=== PATIENT | female | born 1995 | race Caucasian/White ===

== ENCOUNTER 2016-06-26 21:40 | Emergency (ER) | payer MEDICAID ==
[~2016-06-26] VITALS: Ht 162.6 cm; Wt 80.6 kg
[2016-06-26] MEDS ORDERED: KETOROLAC 60MG/2ML VIAL IM ONE (22:30)
[2016-06-26 22:43] VITALS: BP 122/80
[2016-06-26 22:47] LABS: CLARITY URINE CLEAR (CLEAR); COLOR URINE YELLOW (YELLOW); GLUCOSE URINE NEGATIVE (NEGATIVE); KETONES URINE NEGATIVE (NEGATIVE); LEUKOCYTE ESTERASE URINE NEGATIVE (NEGATIVE); NITRITE URINE NEGATIVE (NEGATIVE); OCCULT BLOOD URINE NEGATIVE (NEGATIVE); PROTEIN URINE NEGATIVE (NEGATIVE); SPECIFIC GRAVITY URINE 1.022 (1.005-1.030)
[2016-06-26 23:16] LABS: BASOPHILS % 0.2 % (0.0-2.0); DIFFERENTIAL COMMENT 0; EOSINOPHILS % 1.9 % (0.0-5.0); HEMATOCRIT. 38.5 % (36.0-48.0); HEMOGLOBIN. 12.7 g/dL (12.0-16.0); LYMPHOCYTES % 28.3 % (20.0-50.0); MEAN CORPUSCULAR HEMOGLOBIN 25.6 pg (28.0-32.0); MEAN CORPUSCULAR VOLUME 77.8 fL (81.0-99.0); MEAN PLATELET VOLUME 8.9 fl (7.4-10.4); MONOCYTES % 10.7 % (2.0-8.0); NEUTROPHILS % 58.9 % (40.0-76.0); PLATELET 245 x1000/uL (130-400); RED BLOOD CELL COUNT 4.94 mill/uL (4.2-5.4); RED CELL DISTRIBUTION WIDTH 14.2 % (11.6-14.6); WHITE BLOOD COUNT 7.7 x1000/uL (4.5-11.0)
[2016-06-26 23:19] LABS: CHLORIDE 107 mEq/L (98-107); INDEX HEMOLYSI 1 (1-3); INDEX ICTERIC 1 (1-4); INDEX LIPEMIC 1 (1-3)
[2016-06-26 23:20] LABS: PROTHROMBIN TIME 10.7 sec
[2016-06-26 23:21] LABS: ALBUMIN 3.6 g/dL (3.4-5.0); ANION GAP 12; CALCIUM 8.7 mg/dL (8.5-10.1); CARBON DIOXIDE 29 mEq/L (21-32)
[2016-06-26 23:22] LABS: LIPASE 109 IU/L (73-393); UREA NITROGEN BLOOD 14 mg/dL (7-21)
[2016-06-26 23:27] LABS: ALANINE AMINOTRANSFERASE 18 IU/L (13-61); eGFR > 60 mL/min (>60)
== END 2016-06-27 00:20 | disposition home or self-care (01) ==
LOC: ER 22:45
DX: R07.89 Other chest pain (principal); R10.9 Unspecified abdominal pain; M94.0 Chondrocostal junction syndrome [Tietze]; F17.200 Nicotine dependence, unspecified, uncomplicated
CPT/HCPCS: 36415; 80053; 81003; 81025; 83690; 85025; 85610; 93005; 96372; 99285; J1885; Z7610

== ENCOUNTER 2016-06-28 22:27 | Emergency (ER) | payer MEDICAID ==
[~2016-06-28] VITALS: Ht 162.6 cm; Wt 79.0 kg
[2016-06-28 23:05] VITALS: BP 130/77
== END 2016-06-29 00:42 | disposition home or self-care (01) ==
LOC: ER 22:28
DX: R07.89 Other chest pain (principal); F41.9 Anxiety disorder, unspecified; R25.1 Tremor, unspecified; R06.02 Shortness of breath; I10 Essential (primary) hypertension
CPT/HCPCS: 93005; 99283

== ENCOUNTER 2018-03-20 14:34 | Emergency (ER) | payer MEDICAID ==
[~2018-03-20] VITALS: Ht 162.6 cm; Wt 88.0 kg
[2018-03-20] MEDS ORDERED: IBUPROFEN 400MG TABLET PO ONE (18:30)
[2018-03-20 19:18] VITALS: BP 124/67
== END 2018-03-20 19:31 | disposition home or self-care (01) ==
LOC: ER 14:34
DX: M94.0 Chondrocostal junction syndrome [Tietze] (principal); F41.9 Anxiety disorder, unspecified
CPT/HCPCS: 93005; 99284

== ENCOUNTER 2019-03-26 08:38 | Emergency (ER) | payer SELFPAY ==
[~2019-03-26] VITALS: Ht 165.1 cm; Wt 100.0 kg
[2019-03-26] MEDS ORDERED: ONDANSETRON HCL 4MG/2ML INJ IV STA (12:53)
[2019-03-26] MEDS ORDERED: MAGNESIUM/ALUMINUM HYDROXIDE/SIMETHICONE 30ML UDC PO STA (12:53)
[2019-03-26] MEDS ORDERED: SODIUM CHLORIDE 0.9% 1,000 ML IV ONE (12:53)
[2019-03-26] MEDS ORDERED: MORPHINE SULFATE 4 MG/ML CPJ (NOT FOR IM USE) IV STA (12:53)
[2019-03-26] MEDS ORDERED: FAMOTIDINE 20MG/2ML VIAL IV STA (12:53)
[2019-03-26 13:08] LABS: BASOPHILS % 0.2 % (0.0-2.0); EOSINOPHILS % 0.6 % (0.0-5.0); HEMATOCRIT. 43.6 % (36.0-48.0); HEMOGLOBIN. 14.7 g/dL (12.0-16.0); LYMPHOCYTES % 20.2 % (20.0-50.0); MEAN CORPUSCULAR HEMOGLOBIN 25.9 pg (28.0-32.0); MEAN CORPUSCULAR VOLUME 76.6 fL (81.0-99.0); MEAN PLATELET VOLUME 9.4 fl (7.4-10.4); MONOCYTES % 11.1 % (2.0-8.0); NEUTROPHILS % 67.9 % (40.0-76.0); PLATELET 241 x1000/uL (130-400); RED BLOOD CELL COUNT 5.69 mill/uL (4.2-5.4); RED CELL DISTRIBUTION WIDTH 14.3 % (11.6-14.6)
[2019-03-26 13:14] LABS: INR 1.1; PROTHROMBIN TIME 11.5 sec (9.6-11.0)
[2019-03-26 13:14] LABS: CHLORIDE 106 mEq/L (98-107)
[2019-03-26 14:46] LABS: CLARITY URINE CLEAR (CLEAR); COLOR URINE DARK YELLOW (YELLOW); KETONES URINE 3+ (NEGATIVE); LEUKOCYTE ESTERASE URINE NEGATIVE (NEGATIVE); NITRITE URINE NEGATIVE (NEGATIVE); OCCULT BLOOD URINE NEGATIVE (NEGATIVE); PROTEIN URINE 1+ (NEGATIVE); SPECIFIC GRAVITY URINE 1.037 (1.005-1.030)
[2019-03-26 15:00] VITALS: BP 116/71
== END 2019-03-26 15:03 | disposition home or self-care (01) ==
LOC: ER 08:38
DX: R10.11 Right upper quadrant pain (principal); R19.7 Diarrhea, unspecified; R11.10 Vomiting, unspecified
CPT/HCPCS: 36415; 76705; 80053; 81003; 83690; 85025; 85610; 96361; 96374; 96375; 99284; J2270; J2405; J3490; J7030

== ENCOUNTER 2020-11-16 23:48 | Emergency (ER) | payer SELFPAY ==
[~2020-11-16] VITALS: Ht 162.6 cm; Wt 97.0 kg
[2020-11-17] MEDS ORDERED: TETANUS, DIPHTHERIA, PERTUSSIS VAC/PF 0.5ML (>7YR OLD) IM ONE (01:15)
[2020-11-17] MEDS ORDERED: HYDROCODONE/ACETAMINOPHEN 10/325MG TABLET PO ONE (01:15)
[2020-11-17 02:45] VITALS: BP 126/73
== END 2020-11-17 03:29 | disposition home or self-care (01) ==
LOC: ER 23:48
DX: S01.111A Laceration without foreign body of right eyelid and periocular area, initial encounter (principal); Y08.89XA Assault by other specified means, initial encounter; Y93.89 Activity, other specified; Y92.89 Other specified places as the place of occurrence of the external cause; Y99.8 Other external cause status
CPT/HCPCS: 90471; 90715; 99283